=== PATIENT | male | born 1955 | race Caucasian/White ===

== ENCOUNTER 2016-11-26 15:11 | Inpatient (IN) | payer BC ==
[2016-11-26] MEDS ORDERED: HEPARIN SODIUM,PORCINE 5,000 UNIT/ML 1 ML VIAL IV PRN (15:26)
[2016-11-26] MEDS ORDERED: HEPARIN SODIUM,PORCINE 10,000 UNIT/ML 1 ML VIAL IV ONE (15:26)
[2016-11-26] MEDS ORDERED: NALOXONE 0.4 MG/ML 1 ML VIAL IV PRN (15:26)
[2016-11-26] MEDS ORDERED: MORPHINE SULFATE 4 MG/ML SYRINGE IV PRN (15:26)
--- NOTE | 2016-11-26 15:32 | ED ---
General Adult HPI - General Chief complaint: Shortness of Breath Stated complaint: PE Time Seen by Provider: 11/26/16 15:19 Source: patient, EMS, RN notes reviewed Mode of arrival: EMS Limitations: no limitations - History of Present Illness Initial comments: Patient is a pleasant 61-year-old male presenting to the emergency Department with diagnosis of pulmonary embolism. Patient was seen at an outside facility and transferred for level of care and pulmonary consultation. Patient states he was a little bit short of breath earlier today. Patient mostly complains of discomfort is bilateral lower ribs. This has resolved following pain medication. Patient was diagnosed with computed tomography scan pulmonary embolism and started on heparin. There is also reportedly some strain on the right ventricle. Patient did have appendicitis with surgical removal 1 week ago. Patient denies any abdominal discomfort. - Related Data Allergies Allergy/AdvReac Type Severity Reaction Status Date / Time No Known Allergies Allergy Verified 11/26/16 15:28 Review of Systems ROS Statement: Those systems with pertinent positive or pertinent negative responses have been documented in the HPI. ROS Other: All systems not noted in ROS Statement are negative. Constitutional: Denies: fever Eyes: Denies: eye pain ENT: Denies: ear pain Respiratory: Reports: dyspnea. Denies: cough Cardiovascular: Reports: chest pain Endocrine: Denies: fatigue Gastrointestinal: Denies: abdominal pain Genitourinary: Denies: dysuria Musculoskeletal: Denies: back pain Skin: Denies: rash Neurological: Denies: weakness Past Medical History Past Medical History: No Reported History History of Any Multi-Drug Resistant Organisms: None Reported Past Surgical History: Appendectomy Past Psychological History: No Psychological Hx Reported Smoking Status: Never smoker Past Alcohol Use History: None Reported Past Drug Use History: None Reported General Exam Limitations: no limitations General appearance: alert, in no apparent distress Head exam: Present: atraumatic Eye exam: Present: normal appearance, PERRL ENT exam: Present: normal oropharynx Neck exam: Present: normal inspection Respiratory exam: Present: normal lung sounds bilaterally, chest wall tenderness Cardiovascular Exam: Present: regular rate, normal rhythm GI/Abdominal exam: Present: soft, tenderness (Mild tenderness lower abdomen) Extremities exam: Present: normal inspection. Absent: pedal edema, calf tenderness Neurological exam: Present: alert Psychiatric exam: Present: normal affect, normal mood Skin exam: Absent: rash Course Vital Signs 11/26/16 15:19 Temperature 99.0 F Pulse Rate 99 Respiratory 20 Rate Blood Pressure 145/83 O2 Sat by Pulse 91 L Oximetry Medical Decision Making - Medical Decision Making Case was discussed with Dr. Pretty, who will admit for hospital call. Patient was updated. Disposition Clinical Impression: Pulmonary embolism Disposition: ADMITTED IP TO THIS HOSP Condition: Serious Time of Disposition: 15:32
[2016-11-26] MEDS: SODIUM CHLORIDE 0.9% 1,000 ML IV SCH (15:42)
[2016-11-26] MEDS: HEPARIN SODIUM,PORCINE/D5W PMX 25,000 UNIT in DEXTROSE/WATER 1 500ML.BAG IV SCH (15:45)
[2016-11-26 16:34] LABS: Basophils % (A) 0 %; CH 28.6; CHCM 33.9; Eosinophils % (A) 0 %; HCT 39.4 % (39.0-53.0); HDW 2.68; HGB 13.1 gm/dL (13.0-17.5); Luc % (Auto) 1; Lymphocytes # (A) 1.2 k/uL (1.0-4.8); Lymphocytes % (A) 13 %; MCH 28.1 pg (25.0-35.0); MCHC 33.2 g/dL (31.0-37.0); MCV 84.5 fL (80.0-100.0); Mean Platelet Volume 7.9; Monocytes # (A) 0.8 k/uL (0-1.0); Monocytes % (A) 8 %; Neutrophils # (A) 7.1 k/uL (1.3-7.7); Neutrophils % (A) 77 %; RBC 4.67 m/uL (4.30-5.90); RDW 14.7 % (11.5-15.5); WBC 9.2 k/uL (3.8-10.6); WBC (Perox) 9.42
[2016-11-26 16:47] LABS: ALT 52 U/L (21-72); AST 32 U/L (17-59); Alkaline Phosphatase 78 U/L (38-126); Anion Gap 15 mmol/L; Blood Urea Nitrogen 16 mg/dL (9-20); Calcium 8.4 mg/dL (8.4-10.2); Carbon Dioxide 21 mmol/L (22-30); Chloride 104 mmol/L (98-107); Glucose 104 mg/dL (74-99); Non-African American GFR(MDRD) >60 (>60 ml/min/1.73 sqM); Potassium 4.4 mmol/L (3.5-5.1); Sodium 140 mmol/L (137-145); Total Bilirubin 0.7 mg/dL (0.2-1.3); Total Protein 6.6 g/dL (6.3-8.2)
[2016-11-26 16:50] LABS: INR 1.2 (<1.1); Partial Thromboplastin Time 53.2 sec (22.0-30.0); Prothrombin Time 12.1 sec (9.0-12.0)
--- NOTE | 2016-11-26 19:17 | HP ---
DATE OF ADMISSION: 11/26/2016 61 -year-old pleasant gentleman who was transferred here from outside facility because of pulmonary embolism. The patient was having chest pain and shortness of breath, the patient ( ) pleuritic chest pain, has been going on for two days. ( ) tachycardia, and shortness of breath and patient had an EKG in the outside facility which showed some ( ) and the patient had CT for pulmonary embolism which showed significant bilateral pulmonary emboli with significant ( ). Patient denied any fever, chills. Patient denied any nausea, vomiting. Patient denied any previous history of blood clot. Patient denied any bilateral leg pain. Patient had a recent appendectomy about a week ago after which patient was ambulatory, up and walking. Patient was started on heparin here. Patient did have family history of lymphoma and her daughter and mother had pancreatic cancer. Patient denied any intentional loss of weight. Did not get his regular screening procedures. Never had any regular screening procedures, not a smoker. REVIEW OF SYSTEMS: CONSTITUTIONAL: No fever, no malaise, no fatigue. HEENT: No recent visual problems or hearing problems. Denied any sore throat. CARDIOVASCULAR: As described in history of present illness. PULMONARY: As described in history of present illness. The patient denied any orthopnea or PND. GASTROINTESTINAL: No diarrhea, no nausea, no vomiting, no abdominal pain. Normoactive bowel sounds. NEUROLOGICAL: No headaches, no weakness, no numbness. HEMATOLOGICAL: Denies any bleeding or petechiae. GENITOURINARY: Denies any burning micturition, frequency, or urgency. MUSCULOSKELETAL/RHEUMATOLOGICAL: Denies any joint pain, swelling, or any muscle pain. ENDOCRINE: Denies any polyuria or polydipsia. The rest of the 14 point review of systems is negative. PAST MEDICAL HISTORY: Significant for appendectomy. SOCIAL HISTORY: Denied any smoking, alcohol abuse or any drug abuse. FAMILY HISTORY: As mentioned above. PHYSICAL EXAMINATION: VITAL SIGNS: The patient remains tachycardic, sinus tachycardia with pulse of around 110, respiratory rate of 20, blood pressure 145/83, saturating at 91% on 3 liters of oxygen by nasal cannula. GENERAL: The patient is alert and oriented x3, not in any acute distress. Well developed, well nourished. HEENT: Pupils are round and equally reacting to light. EOMI. No scleral icterus. No conjunctival pallor. Normocephalic, atraumatic. No pharyngeal erythema. No thyromegaly. CARDIOVASCULAR: S1 and S2 present. No murmurs, rubs, or gallops. PULMONARY: Chest is clear to auscultation, no wheezing or crackles. ABDOMEN: Soft, nontender, nondistended, normoactive bowel sounds. No palpable organomegaly. MUSCULOSKELETAL: No joint swelling or deformity. EXTREMITIES: No cyanosis, clubbing, or pedal edema. NEUROLOGICAL: Gross neurological examination did not reveal any focal deficits. SKIN: No rashes. LABORATORY DATA: Reviewed and revealed a CT of chest from the other facility was reviewed. ASSESSMENT AND PLAN: 1. Pulmonary embolism ( ) as patient was ambulating and patient remained tachycardic, because of pulmonary embolism. 2. Acute hypoxic respiratory failure, the patient was started on heparin. The patient will be started on oral agents ( ) oral agents also ( ) Coumadin and once the patient's symptoms of chest pain, shortness of breath and tachycardia improves and the patient is not requiring any oxygen, the patient will be discharged I believe may take a couple of days because of the clot ( ). 3. Tachycardia, sinus tachycardia secondary to pulmonary embolism.
[2016-11-27] MEDS ORDERED: ACETAMINOPHEN TAB 325 MG TAB PO PRN (02:17)
[2016-11-27 04:55] LABS: Basophils % (A) 0 %; CH 28.2; CHCM 33.3; Eosinophils # (A) 0.1 k/uL (0-0.7); Eosinophils % (A) 1 %; HCT 37.6 % (39.0-53.0); HDW 2.65; HGB 12.3 gm/dL (13.0-17.5); Luc # (Auto) 0.14; Luc % (Auto) 2; Lymphocytes # (A) 1.1 k/uL (1.0-4.8); Lymphocytes % (A) 17 %; MCH 27.8 pg (25.0-35.0); MCHC 32.7 g/dL (31.0-37.0); MCV 84.9 fL (80.0-100.0); Mean Platelet Volume 7.1; Monocytes # (A) 0.5 k/uL (0-1.0); Monocytes % (A) 8 %; Neutrophils # (A) 4.6 k/uL (1.3-7.7); Neutrophils % (A) 72 %; RBC 4.43 m/uL (4.30-5.90); RDW 14.6 % (11.5-15.5); WBC 6.4 k/uL (3.8-10.6); WBC (Perox) 6.59
[2016-11-27] MEDS: HEPARIN SODIUM,PORCINE/D5W PMX 25,000 UNIT in DEXTROSE/WATER 1 500ML.BAG IV SCH (06:45)
[2016-11-27] MEDS ORDERED: PANTOPRAZOLE 40 MG/10 ML VIAL IV SCH (09:00)
[2016-11-27 10:54] VITALS: RESP 16
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
--- NOTE | 2016-11-27 14:46 | US ---
EXAMINATION TYPE: US venous doppler duplex LE DATE OF EXAM: 11/27/2016 2:22 PM COMPARISON: CTA angiogram of the chest from outside institution dated 26 November 2016 CLINICAL HISTORY: DVT. PE, patient on blood thinners SIDE PERFORMED: Bilateral VESSELS IMAGED: External Iliac Vein (EIV) Common Femoral Vein Deep Femoral Vein Greater Saphenous Vein * Femoral Vein Popliteal Vein Small Saphenous Vein * Proximal Calf Veins (* superficial vessels) There is lack of compressibility, color flow, spectral Doppler signal within the popliteal vein on th e right centrally. Right Leg: Positive for DVT within proximal popliteal vein Left Leg: Appears negative for DVT Grayscale, color Doppler, spectral Doppler imaging performed of the deep veins of the lower extremiti es. IMPRESSION: Deep venous thrombosis right popliteal vein. Report relayed by the technologist at 1430 hours on date of exam to the patient's nurse.
[2016-11-27] MEDS ORDERED: RIVAROXABAN 15 MG TAB PO SCH (17:30)
[2016-11-27] MEDS: SODIUM CHLORIDE 0.9% 1,000 ML IV SCH (17:56)
--- NOTE | 2016-11-27 18:58 | PN ---
Patient is admitted with pulmonary embolism. Patient has right upper lobe possible infarct as well and patient has significant clinical improvement. Pulmonology evaluated the patient. They are recommending one more day of hospitalization and monitoring. Patient will be started on Xarelto tonight and possibility of discharge tomorrow on Xarelto, although patient does not have prescription coverage. Will refer him to Dr. Yo a primary doctor from now and a week he runs out of Xarelto, if he does not have prescription coverage by then, patient may need to be converted to Coumadin a week before and check INR in the on the 3rd after starting Coumadin and if his INR is therapeutic, then Xarelto can be discontinued at that time The patient is otherwise clinically doing well. REVIEW OF SYSTEMS: CARDIOVASCULAR: No chest pain, no orthopnea, no PND, no palpitations. PULMONARY: Denied any shortness of breath. No cough or hemoptysis. GASTROINTESTINAL: No diarrhea, nausea or vomiting. No abdominal pain. Normoactive bowel sounds. NEUROLOGIC: No headaches, no weakness, no numbness. Medications were reviewed. PHYSICAL EXAMINATION: VITAL SIGNS: Temperature 97.0, pulse of 98, respiratory rate of 16, blood pressure is 128/79, saturating at 95% on room air. GENERAL: The patient is alert and oriented x3, not in any acute distress. Well developed, well nourished. HEENT: Pupils are round and equally reacting to light. EOMI. No scleral icterus. No conjunctival pallor. Normocephalic, atraumatic. No pharyngeal erythema. No thyromegaly. CARDIOVASCULAR: S1 and S2 present. No murmurs, rubs, or gallops. PULMONARY: Chest is clear to auscultation, no wheezing or crackles. ABDOMEN: Soft, nontender, nondistended, normoactive bowel sounds. No palpable organomegaly. MUSCULOSKELETAL: No joint swelling or deformity. EXTREMITIES: No cyanosis, clubbing, or pedal edema. NEUROLOGICAL: Gross neurological examination did not reveal any focal deficits. SKIN: No rashes. LABORATORY DATA: Patient had a venous Doppler done during this hospitalization which showed popliteal DVT. ASSESSMENT AND PLAN: 1. Pulmonary embolism, new onset, appears to be nonprovoked. 2. Acute hypoxic respiratory failure secondary to pulmonary embolism. 3. Right lower limb deep venous thrombosis. 4. Tachycardia, which improved secondary to pulmonary embolism. PLAN: As mentioned in the interval history.
[2016-11-27] MEDS ORDERED: PANTOPRAZOLE 40 MG TABLET PO SCH (22:00)
[2016-11-27] MEDS: PANTOPRAZOLE 40 MG TABLET PO SCH (22:35)
[2016-11-28 06:19] LABS: Basophils % (A) 0 %; CH 28.2; CHCM 33.6; Eosinophils # (A) 0.1 k/uL (0-0.7); Eosinophils % (A) 1 %; HCT 37.3 % (39.0-53.0); HDW 2.77; HGB 12.3 gm/dL (13.0-17.5); Luc # (Auto) 0.12; Luc % (Auto) 2; Lymphocytes # (A) 0.8 k/uL (1.0-4.8); Lymphocytes % (A) 15 %; MCH 27.8 pg (25.0-35.0); MCV 84.2 fL (80.0-100.0); Mean Platelet Volume 7.2; Monocytes # (A) 0.4 k/uL (0-1.0); Monocytes % (A) 7 %; Neutrophils # (A) 4.3 k/uL (1.3-7.7); Neutrophils % (A) 74 %; RBC 4.43 m/uL (4.30-5.90); RDW 14.5 % (11.5-15.5); WBC 5.7 k/uL (3.8-10.6); WBC (Perox) 6.15
[2016-11-28] MEDS: PANTOPRAZOLE 40 MG TABLET PO SCH (06:48)
[2016-11-28] MEDS ORDERED: PANTOPRAZOLE 40 MG TABLET PO SCH (07:30)
--- NOTE | 2016-11-28 08:36 | ECHOF ---
Referral Reason:PE MEASUREMENTS -------- HEIGHT: 170.2 cm WEIGHT: 55.8 kg BP: 121/87 RVIDd: 2.5 cm (< 3.3) IVSd: 1.1 cm (0.6 - 1.1) LVIDd: 3.9 cm (3.9 - 5.3) LVPWd: 1.3 cm (0.6 - 1.1) IVSs: 1.7 cm LVIDs: 2.1 cm LVPWs: 1.6 cm Ao Diam: 3.4 cm (2.0 - 3.7) AV Cusp: 2.4 cm (1.5 - 2.6) LA Diam: 3.1 cm (2.7 - 3.8) MV EXCURSION: 13.189 mm (> 18.000) MV EF SLOPE: 59 mm/s (70 - 150) EPSS: 0.9 cm MV E Cash: 0.63 m/s MV DecT: 235 ms MV A Cash: 0.53 m/s MV E/A Ratio: 1.18 RAP: 5.00 mmHg RVSP: 11.86 mmHg FINDINGS -------- Sinus rhythm. This was a technically good study. Left ventricular wall thickness is normal. Overall left ventricular systolic function is normal with, an EF between 55 - 60 %. The right ventricle is normal in size and function. The left atrium is normal in size. The right atrium is normal in size. Aortic valve is trileaflet and is mildly thickened. The mitral valve leaflets are mildly thickened. Mild mitral regurgitation is present. Mild tricuspid regurgitation present. The right ventricular systolic pressure, as measured by Doppler, is 11.86mmHg. Pulmonic valve appears structurally normal. The aortic root size is normal. The pericardium is normal. CONCLUSIONS -------- 1. Sinus rhythm. 2. Mild mitral regurgitation is present. 3. Mild tricuspid regurgitation present. 4. The right ventricular systolic pressure, as measured by Doppler, is 11.86mmHg. 5. Pulmonic valve appears structurally normal. 6. The aortic root size is normal. 7. The pericardium is normal. 8. This was a technically good study. 9. Left ventricular wall thickness is normal. 10. Overall left ventricular systolic function is normal with, an EF between 55 - 60 %. 11. The right ventricle is normal in size and function. 12. The left atrium is normal in size. 13. The right atrium is normal in size. 14. Aortic valve is trileaflet and is mildly thickened. 15. The mitral valve leaflets are mildly thickened. RN ALLERGY: Lilliana Hammer RDCS
[2016-11-28 08:47] VITALS: BP 124/77; PULSE 94; TEMP 97.5
[2016-11-28] MEDS ORDERED: RIVAROXABAN 15 MG TAB PO ONE (09:00)
--- NOTE | 2016-11-29 14:55 | DS ---
DATE OF ADMISSION: 11/26/2016 DATE OF DISCHARGE: 11/28/2016 The patient is admitted to the hospital with pulmonary embolism. The patient is being discharged today on Xarelto. Please refer to my dictation of H&P for management of Xarelto. Patient does not have any prescription coverage. The patient was given ( ) prescription of Xarelto from the hospital. If the patient does not have any coverage before he runs out of Xarelto, the patient needs to be started on Coumadin and ( ) bridging and before he runs out of Xarelto, the patient needs to be Coumadin a week before his discharge, the patient will be started on Coumadin and check INR 3 days and 5 days after starting Coumadin whenever INR is between 2 to 3 then Xarelto needs to be discontinued. Patient is otherwise, clinically doing well. The patient was seen and examined on the day of discharge. Vital signs stable. PHYSICAL EXAMINATION: GENERAL: The patient is alert and oriented x3, not in any acute distress. Well developed, well nourished. HEENT: Pupils are round and equally reacting to light. EOMI. No scleral icterus. No conjunctival pallor. Normocephalic, atraumatic. No pharyngeal erythema. No thyromegaly. CARDIOVASCULAR: S1 and S2 present. No murmurs, rubs, or gallops. PULMONARY: Chest is clear to auscultation, no wheezing or crackles. ABDOMEN: Soft, nontender, nondistended, normoactive bowel sounds. No palpable organomegaly. MUSCULOSKELETAL: No joint swelling or deformity. EXTREMITIES: No cyanosis, clubbing, or pedal edema. NEUROLOGICAL: Gross neurological examination did not reveal any focal deficits. SKIN: No rashes. FINAL DIAGNOSIS(ES): 1. Pulmonary embolism appears to be unprovoked. 2. Acute hypoxic respiratory failure secondary to pulmonary embolism. 3. Right lower limb deep venous thrombosis. 4. Tachycardia, which resolved secondary to physical examination. The patient is hemodynamically stable and patient is being discharged today on Xarelto. Patient will follow up with ( ) in about 3 to 5 days. Activity as tolerated. Regular diet.
== END 2016-11-28 11:24 | disposition home or self-care (01) | DRG 175 ==
LOC: EC 15:11 → 6SEL 15:55
PROVIDERS: ADMIT Internal Medicine; ATTEND Internal Medicine
DX: I26.99 Other pulmonary embolism without acute cor pulmonale (principal); J96.01 Acute respiratory failure with hypoxia; I82.431 Acute embolism and thrombosis of right popliteal vein; R00.0 Tachycardia, unspecified; Z80.0 Family history of malignant neoplasm of digestive organs; Z80.7 Family history of other malignant neoplasms of lymphoid, hematopoietic and related tissues; Z82.5 Family history of asthma and other chronic lower respiratory diseases; Z80.3 Family history of malignant neoplasm of breast; Z87.891 Personal history of nicotine dependence; Z90.49 Acquired absence of other specified parts of digestive tract; Z98.890 Other specified postprocedural states; Z87.828 Personal history of other (healed) physical injury and trauma
CPT/HCPCS: 80053; 83605; 85025; 85610; 85730; 93306; 93970; 96365; 96366; 96376; 99285